=== PATIENT | female | born 1960 | race African-American/Black ===

== ENCOUNTER 2021-11-16 00:52 | Inpatient (IN) | payer OTHER ==
[~2021-11-16] VITALS: Ht 177.8 cm; Wt 78.8 kg
[2021-11-16] VITALS (46 sets, daily range): BP systolic 45–165; BP diastolic 25–105
--- NOTE | ~2021-11-16 | EMS ---
[address] [address] EMS Patient Care Report Name: MARTINEZ GOMEZ Room #: 243-P ADM IN M.R.#: [id number] Admission: 11/16/21 Attend Phys: Sam Cruz DO Discharge: Date of : 58 Report #: [id number] THIS REPORT FOR: //name// Report Transmitted: 11/16/2021 16:19 EMS Care Summary [place], [place]/[facility] Incident [id number] @ 11/15/2021 23:47 Incident Location [address] [place] [address] Patient MARTINEZ GOMEZ Female, 61 Years 1960 Patient Address [address] [place] [address] Patient History Congestive Heart Failure (CHF),Chronic Obstructive Pulmonary Disease (COPD),Hypertension (HTN), Patient Allergies Penicillin allergy,Sulfa, Patient Medications None Reported, Chief Complaint UNRESPONSIVE Disposition Transported Lights/[facility] Dispatch Reason Breathing Problem Transported To [facility] Narrative RESPONDED TO BREATHING PROBLEMS AT APARTMENT. UPON ARRIVAL PT FOUND LEANING AGAINST WALL IN HALLWAY UNRESPONSIVE. PT HAS FROTHY FLUIDS COMING FROM MOUTH. [facility] [address] [place] [address] EMS Patient Care Report Name: MARTINEZ GOMEZ Room #: 243-P ADM IN M.Yasir.#: [id number] Admission: 11/16/21 Attend Phys: Sam Cruz, DO Discharge: Date of : 58 Report #: [id number] PT WAS PUT ON MONITOR AND INTIALLY PREPPED FOR PACING BUT UPON CHECKING PULSE CPR WAS INITIATED. IGEL AND BVM WITH O2 AT 15LPM INITIATED BY EMT. IV ACCESS ATTEMPTED BUT IO WAS ESTABLISHED AND EPI GIVEN. PT GIVEN MULTIPLE EPI AND ROSC OCCURRED FOR APPROXIMATELY 30 SECONDS.12 LEAD WAS PREPPED PT WAS DEFIBRILLATED INSTEAD. AMIODARONE 300MG GIVEN AND CPR CONTINUED. SHORTLY AFTER PT WAS PEA AND GIVEN EPI BUT THEN ROSC OCCURRED AGAIN, 12 LEAD OBTAINED AND PT WAS PREPPED FOR TRANSPORT. PULSE WAS LOST EN ROUTE TO AMBULANCE AND CPR STARTED AGAIN. PT GIVEN 1 EPI EN ROUTE. UPON ARRIVAL TO HOSPITAL PT AGAIN HAD PULSE RETURN. PT WAS GENTLY MOVED TO HOSPITAL BED AND REPORT GIVEN TO NURSE. PT WAS CODED ONCE AGAIN AND HOSPITAL STAFF ACHIEVED ROSC AFTER SEVERAL MINUTES. Initial Vitals @00:08P: 154, @00:11P: 48, @00:04P: 145,SpO2: 78, @00:10P: 108, @00:19P: 159, @00:25P: 109,R: 10,EtCO2: 68, @00:14P: 159,R: 6,EtCO2: 14, @00:28P: 163,EtCO2: 39, @00:20P: 163, @00:27P: 135,R: 14,EtCO2: 87, @00:11P: 21,Glucose: 131, @00:07P: 20,SpO2: 55, @00:26P: 141,R: 13,BP: 105/73,EtCO2: 86, @00:20P: 165,R: 6,EtCO2: 47, @00:01P: 40,SpO2: 29, @00:05P: 101,EtCO2: 0,SpO2: 83, @00:12P: 201,R: 8,EtCO2: 29, @00:06P: 178,EtCO2: 0,SpO2: 60, @00:17P: 24,R: 4,EtCO2: 0, @00:28P: 128, @00:27P: 171,EtCO2: 81, @00:21P: 165,R: 10,EtCO2: 40, @00:01P: 45,SpO2: 47, @00:25P: 111,R: 6,EtCO2: 89, @00:24P: 167,R: 11,EtCO2: 61, @00:47P: 36,R: 9,EtCO2: 44, @00:51P: 75,R: 12,EtCO2: 59, @00:48P: 66,R: 9,EtCO2: 38, @00:42P: 44, @00:35P: 96,R: 12,EtCO2: 38,SpO2: 100, @00:36P: 87,R: 6,EtCO2: 56, @00:43P: 37,R: 12,EtCO2: 44, @00:35P: 94,R: 9,EtCO2: 59, @00:34P: 90,R: 10,EtCO2: 57,SpO2: 95, [address] [place] [address] EMS Patient Care Report Name: MARTINEZ GOMEZ Room #: 243-P ADM IN M.R.#: [id number] Admission: 11/16/21 Attend Phys: Sam Cruz DO Discharge: Date of : 58 Report #: [id number] @00:31P: 95,R: 6, @00:44P: 32,R: 7,EtCO2: 0, @00:32P: 76,R: 11,EtCO2: 50,SpO2: 97, @00:45P: 36,EtCO2: 77, @00:31P: 73,R: 6,CO: 14,EtCO2: 38,SpO2: 99, @00:50P: 77,R: 12,EtCO2: 51, @00:39P: 95,R: 9,EtCO2: 47,SpO2: 96, @00:29P: 170,R: 12,EtCO2: 62,SpO2: 99, @00:46P: 28,R: 13,EtCO2: 35, @23:59P: 113,GCS: 3,SpO2: 65, Assessments @00:01MENTAL:Unresponsive,SKIN:Pale,HEENT:Eyes: Left: Dilated,Eyes: Right: Dilated,LUNG SOUNDS:General: No Abnormalities,ABDOMEN:General: No Abnormalities,PELVIS//GI:No Abnormalities,EXTREMITIES:Left Arm: No Abnormalities,Right Arm: No Abnormalities,Left Leg: No Abnormalities,Right Leg: No Abnormalities,PULSE:Carotid: Absent,Radial: Absent,NEURO:Other,@00:12MENTAL:Unresponsive,SKIN:Pale,HEENT:Eyes: Left: Dilated,Eyes: Right: Dilated,Neck/Airway: No Abnormalities,LUNG SOUNDS:General: No Abnormalities,Left Upper: No Abnormalities,Right Upper: No Abnormalities,Left Lower: No Abnormalities,Right Lower: No Abnormalities,ABDOMEN:General: No Abnormalities,Left Upper: No Abnormalities,Right Upper: No Abnormalities,Left Lower: No Abnormalities,Right Lower: No Abnormalities,PELVIS//GI:No Abnormalities,EXTREMITIES:Left Arm: No Abnormalities,Right Arm: No Abnormalities,Left Leg: No Abnormalities,Right Leg: No Abnormalities,PULSE:Carotid: Absent,Radial: Absent,NEURO:Other, Impression Cardiac arrest Procedures @00:01 Response: Unchanged @00:20 Epinephrine 1:10 - 1 Milligrams (mg) - Intraosseous (IO) Response: Unchanged @00:10 Epinephrine 1:10 - 1 Milligrams (mg) - Intraosseous (IO) Response: Unchanged @00:01 Response: Unchanged @00:27 Response: UnchangedSucceeded @00:32 Epinephrine 1:10 - 1 Milligrams (mg) - Intraosseous (IO) Response: Unchanged @00:28 Epinephrine 1:10 - 1 Milligrams (mg) - Intraosseous (IO) Response: Unchanged @23:58 Response: UnchangedSucceeded @00:44 Epinephrine 1:10 - 1 Milligrams (mg) - Intraosseous (IO) Response: Unchanged @00:36 12-Lead ECG Response: UnchangedSucceeded [address] [address] EMS Patient Care Report Name: MARTINEZ GOMEZ Room #: 243-P [facility] IN ..#: [id number] Admission: 11/16/21 Attend Phys: Sam Cruz DO Discharge: Date of : 58 Report #: [id number] @00:01 3-Lead ECG Response: UnchangedSucceeded @00:29 Amiodarone - 300 Milligrams (mg) - Intraosseous (IO) Response: Unchanged @00:05 Oxygen FlowRate: 15 Device: Bag Valve Mask (BVM) Response: UnchangedSucceeded @00:05 iGEL Response: UnchangedSucceeded @00:03 IV Therapy - 0cc (22 ga) Site: Antecubital-Left Response: UnchangedFailed @23:58 ALS Assessment Response: UnchangedSucceeded @00:13 Suction Response: UnchangedSucceeded @00:07 Intraosseous - Normal Saline (.9% NaCl) 500cc (EZ-IO (Blue 25mm)) Site: PP-Exvmp-Dhwl Proximal Response: UnchangedSucceeded @00:16 Orotracheal Intubation Complications: Unable To Visualize, Response: UnchangedSucceeded @00:12 Response: UnchangedSucceeded Timeline 23:46,Call Received 23:46,Dispatch Notified 23:47,Dispatched 23:48,En Route 23:55,On Scene 23:58,At Patient 23:58,ALS Assessment,Response: UnchangedSucceeded, 23:58,Response: UnchangedSucceeded, 23:59,BP: / M,PULSE: 113,RR: R,SPO2: 65 Ox,ETCO2: ,BG: ,PAIN: ,GCS: 3, 00:01,BP: / M,PULSE: 40,RR: R,SPO2: 29 Ox,ETCO2: ,BG: ,PAIN: ,GCS: , 00:01,3-Lead ECG,Response: UnchangedSucceeded, 00:01,Response: Unchanged 00:01,BP: / M,PULSE: 45,RR: R,SPO2: 47 Ox,ETCO2: ,BG: ,PAIN: ,GCS: , 00:01,Response: Unchanged 00:03,IV Therapy - 0cc 22 ga Site: Antecubital-Left,Response: UnchangedFailed, 00:04,BP: / M,PULSE: 145,RR: R,SPO2: 78 Ox,ETCO2: ,BG: ,PAIN: ,GCS: , 00:05,BP: / M,PULSE: 101,RR: R,SPO2: 83 Ox,ETCO2: 0 ,BG: ,PAIN: ,GCS: , 00:05,iGEL Response: UnchangedSucceeded, 00:05,Oxygen FlowRate: 15 Device: Bag Valve Mask (BVM) Response: UnchangedSucceeded, 00:06,BP: / M,PULSE: 178,RR: R,SPO2: 60 Ox,ETCO2: 0 ,BG: ,PAIN: ,GCS: , 00:07,Intraosseous - Normal Saline (.9% NaCl) 500cc EZ-IO (Blue 25mm) Site: XS-Iaawv-Fdds Proximal,Response: UnchangedSucceeded, 00:07,BP: / M,PULSE: 20,RR: R,SPO2: 55 Ox,ETCO2: ,BG: ,PAIN: ,GCS: , 00:08,BP: / M,PULSE: 154,RR: R,SPO2: Ox,ETCO2: ,BG: ,PAIN: ,GCS: , 00:10,Epinephrine 1:10 - 1 Milligrams (mg) - Intraosseous (IO),Response: Unchanged 00:10,BP: / M,PULSE: 108,RR: R,SPO2: Ox,ETCO2: ,BG: ,PAIN: ,GCS: , 00:11,BP: / M,PULSE: 48,RR: R,SPO2: Ox,ETCO2: ,BG: ,PAIN: ,GCS: , [facility] [address] [place] [address] EMS Patient Care Report Name: MARTINEZ GOMEZ Room #: 243-P ADM IN M.R.#: [id number] Admission: 11/16/21 Attend Phys: Sam Cruz DO Discharge: Date of : 58 Report #: [id number] 00:11,BP: / M,PULSE: 21,RR: R,SPO2: Ox,ETCO2: ,B,PAIN: ,GCS: , 00:12,Response: UnchangedSucceeded, 00:12,BP: / M,PULSE: 201,RR: 8 R,SPO2: Ox,ETCO2: 29 ,BG: ,PAIN: ,GCS: , 00:13,Suction Response: UnchangedSucceeded, 00:14,BP: / M,PULSE: 159,RR: 6 R,SPO2: Ox,ETCO2: 14 ,BG: ,PAIN: ,GCS: , 00:16,Orotracheal Intubation Complications: Unable To Visualize,,Response: UnchangedSucceeded, 00:17,BP: / M,PULSE: 24,RR: 4 R,SPO2: Ox,ETCO2: 0 ,BG: ,PAIN: ,GCS: , 00:19,BP: / M,PULSE: 159,RR: R,SPO2: Ox,ETCO2: ,BG: ,PAIN: ,GCS: , 00:20,BP: / M,PULSE: 165,RR: 6 R,SPO2: Ox,ETCO2: 47 ,BG: ,PAIN: ,GCS: , 00:20,Epinephrine 1:10 - 1 Milligrams (mg) - Intraosseous (IO),Response: Unchanged 00:20,BP: / M,PULSE: 163,RR: R,SPO2: Ox,ETCO2: ,BG: ,PAIN: ,GCS: , 00:21,BP: / M,PULSE: 165,RR: 10 R,SPO2: Ox,ETCO2: 40 ,BG: ,PAIN: ,GCS: , 00:24,BP: / M,PULSE: 167,RR: 11 R,SPO2: Ox,ETCO2: 61 ,BG: ,PAIN: ,GCS: , 00:25,BP: / M,PULSE: 109,RR: 10 R,SPO2: Ox,ETCO2: 68 ,BG: ,PAIN: ,GCS: , 00:25,BP: / M,PULSE: 111,RR: 6 R,SPO2: Ox,ETCO2: 89 ,BG: ,PAIN: ,GCS: , 00:26,BP: 105/73 M,PULSE: 141,RR: 13 R,SPO2: Ox,ETCO2: 86 ,BG: ,PAIN: ,GCS: , 00:27,Response: UnchangedSucceeded, 00:27,BP: / M,PULSE: 135,RR: 14 R,SPO2: Ox,ETCO2: 87 ,BG: ,PAIN: ,GCS: , 00:27,BP: / M,PULSE: 171,RR: R,SPO2: Ox,ETCO2: 81 ,BG: ,PAIN: ,GCS: , 00:28,BP: / M,PULSE: 163,RR: R,SPO2: Ox,ETCO2: 39 ,BG: ,PAIN: ,GCS: , 00:28,Epinephrine 1:10 - 1 Milligrams (mg) - Intraosseous (IO),Response: Unchanged 00:28,BP: / M,PULSE: 128,RR: R,SPO2: Ox,ETCO2: ,BG: ,PAIN: ,GCS: , 00:29,Amiodarone - 300 Milligrams (mg) - Intraosseous (IO),Response: Unchanged 00:29,BP: / M,PULSE: 170,RR: 12 R,SPO2: 99 Ox,ETCO2: 62 ,BG: ,PAIN: ,GCS: , 00:31,BP: / M,PULSE: 73,RR: 6 R,SPO2: 99 Ox,ETCO2: 38 ,BG: ,PAIN: ,GCS: , 00:31,BP: / M,PULSE: 95,RR: 6 R,SPO2: Ox,ETCO2: ,BG: ,PAIN: ,GCS: , 00:32,Epinephrine 1:10 - 1 Milligrams (mg) - Intraosseous (IO),Response: Unchanged 00:32,BP: / M,PULSE: 76,RR: 11 R,SPO2: 97 Ox,ETCO2: 50 ,BG: ,PAIN: ,GCS: , 00:34,BP: / M,PULSE: 90,RR: 10 R,SPO2: 95 Ox,ETCO2: 57 ,BG: ,PAIN: ,GCS: , 00:35,BP: / M,PULSE: 96,RR: 12 R,SPO2: 100 Ox,ETCO2: 38 ,BG: ,PAIN: ,GCS: , 00:35,BP: / M,PULSE: 94,RR: 9 R,SPO2: Ox,ETCO2: 59 ,BG: ,PAIN: ,GCS: , 00:36,12-Lead ECG,Response: UnchangedSucceeded, 00:36,BP: / M,PULSE: 87,RR: 6 R,SPO2: Ox,ETCO2: 56 ,BG: ,PAIN: ,GCS: , 00:39,BP: / M,PULSE: 95,RR: 9 R,SPO2: 96 Ox,ETCO2: 47 ,BG: ,PAIN: ,GCS: , 00:42,BP: / M,PULSE: 44,RR: R,SPO2: Ox,ETCO2: ,BG: ,PAIN: ,GCS: , 00:43,BP: / M,PULSE: 37,RR: 12 R,SPO2: Ox,ETCO2: 44 ,BG: ,PAIN: ,GCS: , 00:44,Epinephrine 1:10 - 1 Milligrams (mg) - Intraosseous (IO),Response: Unchanged 00:44,BP: / M,PULSE: 32,RR: 7 R,SPO2: Ox,ETCO2: 0 ,BG: ,PAIN: ,GCS: , 00:45,BP: / M,PULSE: 36,RR: R,SPO2: Ox,ETCO2: 77 ,BG: ,PAIN: ,GCS: , 00:45,Depart Scene 00:46,BP: / M,PULSE: 28,RR: 13 R,SPO2: Ox,ETCO2: 35 ,BG: ,PAIN: ,GCS: , [address] [place] [address] EMS Patient Care Report Name: MARTINEZ GOMEZ Room #: 243-P ADM IN M.R.#: [id number] Admission: 11/16/21 Attend Phys: Sam Cruz DO Discharge: Date of : 58 Report #: [id number] 00:47,BP: / M,PULSE: 36,RR: 9 R,SPO2: Ox,ETCO2: 44 ,BG: ,PAIN: ,GCS: , 00:48,BP: / M,PULSE: 66,RR: 9 R,SPO2: Ox,ETCO2: 38 ,BG: ,PAIN: ,GCS: , 00:49,At Destination 00:50,BP: / M,PULSE: 77,RR: 12 R,SPO2: Ox,ETCO2: 51 ,BG: ,PAIN: ,GCS: , 00:51,BP: / M,PULSE: 75,RR: 12 R,SPO2: Ox,ETCO2: 59 ,BG: ,PAIN: ,GCS: , 01:10,Call Closed Disclaimer v1.1 Copyright 2021 [employer] This EMS Care Summary contains data elements from the applicable legal record (which may be displayed differently). It is designed to provide pertinent information for the following purposes: continuity of care, clinical quality, and state data reporting. The complete legal record is available to ED staff and administrators of the receiving hospital in [employer] Patient Tracker. All data is provided "as is."
--- NOTE | ~2021-11-16 | EMS ---
[facility] [address] [place] [address] EMS Patient Care Report Name: MARTINEZ GOMEZ Room #: MAULIK LEILA Willis#: [id number] Admission: 11/16/21 Attend Phys: Discharge: Date of : 58 Report #: [id number] THIS REPORT FOR: //name// Report Transmitted: 11/16/2021 01:54 EMS Care Summary [place], [place]/[facility] Incident [id number] @ 11/15/2021 23:47 Incident Location [address] [place] [address] Patient MARTINEZ GOMEZ Female, 61 Years 1960 Patient Address [address] [address] Patient History Congestive Heart Failure (CHF),Chronic Obstructive Pulmonary Disease (COPD),Hypertension (HTN), Patient Allergies Penicillin allergy,Sulfa, Patient Medications None Reported, Chief Complaint UNRESPONSIVE Disposition Transported [place] Dispatch Reason Breathing Problem Transported [facility] Narrative RESPONDED TO BREATHING PROBLEMS AT APARTMENT. UPON ARRIVAL PT FOUND LEANING AGAINST WALL IN HALLWAY UNRESPONSIVE. PT HAS FROTHY FLUIDS COMING FROM MOUTH. [facility] [address] [place] [address] EMS Patient Care Report Name: MARTINEZ GOMEZ Room #: MAULIK Willis#: [id number] Admission: 11/16/21 Attend Phys: Discharge: Date of : 58 Report #: [id number] PT WAS PUT ON MONITOR AND INTIALLY PREPPED FOR PACING BUT UPON CHECKING PULSE CPR WAS INITIATED. IGEL AND BVM WITH O2 AT 15LPM INITIATED BY EMT. IV ACCESS ATTEMPTED BUT IO WAS ESTABLISHED AND EPI GIVEN. PT GIVEN MULTIPLE EPI AND ROSC OCCURRED FOR APPROXIMATELY 30 SECONDS.12 LEAD WAS PREPPED PT WAS DEFIBRILLATED INSTEAD. AMIODARONE 300MG GIVEN AND CPR CONTINUED. SHORTLY AFTER PT WAS PEA AND GIVEN EPI BUT THEN ROSC OCCURRED AGAIN, 12 LEAD OBTAINED AND PT WAS PREPPED FOR TRANSPORT. PULSE WAS LOST EN ROUTE TO AMBULANCE AND CPR STARTED AGAIN. PT GIVEN 1 EPI EN ROUTE. UPON ARRIVAL TO HOSPITAL PT AGAIN HAD PULSE RETURN. PT WAS GENTLY MOVED TO HOSPITAL BED AND REPORT GIVEN TO NURSE. PT WAS CODED ONCE AGAIN AND HOSPITAL STAFF ACHIEVED ROSC AFTER SEVERAL MINUTES. Initial Vitals @00:08P: 154, @00:11P: 48, @00:04P: 145,SpO2: 78, @00:10P: 108, @00:19P: 159, @00:25P: 109,R: 10,EtCO2: 68, @00:14P: 159,R: 6,EtCO2: 14, @00:28P: 163,EtCO2: 39, @00:20P: 163, @00:27P: 135,R: 14,EtCO2: 87, @00:11P: 21,Glucose: 131, @00:07P: 20,SpO2: 55, @00:26P: 141,R: 13,BP: 105/73,EtCO2: 86, @00:20P: 165,R: 6,EtCO2: 47, @00:01P: 40,SpO2: 29, @00:05P: 101,EtCO2: 0,SpO2: 83, @00:12P: 201,R: 8,EtCO2: 29, @00:06P: 178,EtCO2: 0,SpO2: 60, @00:17P: 24,R: 4,EtCO2: 0, @00:28P: 128, @00:27P: 171,EtCO2: 81, @00:21P: 165,R: 10,EtCO2: 40, @00:01P: 45,SpO2: 47, @00:25P: 111,R: 6,EtCO2: 89, @00:24P: 167,R: 11,EtCO2: 61, @00:47P: 36,R: 9,EtCO2: 44, @00:51P: 75,R: 12,EtCO2: 59, @00:48P: 66,R: 9,EtCO2: 38, @00:42P: 44, @00:35P: 96,R: 12,EtCO2: 38,SpO2: 100, @00:36P: 87,R: 6,EtCO2: 56, @00:43P: 37,R: 12,EtCO2: 44, @00:35P: 94,R: 9,EtCO2: 59, @00:34P: 90,R: 10,EtCO2: 57,SpO2: 95, [address] [place] [address] EMS Patient Care Report Name: MARTINEZ GOMEZ Room #: MAULIK Willis#: [id number] Admission: 11/16/21 Attend Phys: Discharge: Date of : 58 Report #: [id number] @00:31P: 95,R: 6, @00:44P: 32,R: 7,EtCO2: 0, @00:32P: 76,R: 11,EtCO2: 50,SpO2: 97, @00:45P: 36,EtCO2: 77, @00:31P: 73,R: 6,CO: 14,EtCO2: 38,SpO2: 99, @00:50P: 77,R: 12,EtCO2: 51, @00:39P: 95,R: 9,EtCO2: 47,SpO2: 96, @00:29P: 170,R: 12,EtCO2: 62,SpO2: 99, @00:46P: 28,R: 13,EtCO2: 35, @23:59P: 113,GCS: 3,SpO2: 65, Assessments @00:01MENTAL:Unresponsive,SKIN:Pale,HEENT:Eyes: Right: Dilated,Eyes: Left: Dilated,LUNG SOUNDS:General: No Abnormalities,ABDOMEN:General: No Abnormalities,PELVIS//GI:No Abnormalities,EXTREMITIES:Left Arm: No Abnormalities,Right Arm: No Abnormalities,Left Leg: No Abnormalities,Right Leg: No Abnormalities,PULSE:Radial: Absent,Carotid: Absent,NEURO:Other,@00:12MENTAL:Unresponsive,SKIN:Pale,HEENT:Eyes: Right: Dilated,Eyes: Left: Dilated,Neck/Airway: No Abnormalities,LUNG SOUNDS:General: No Abnormalities,Left Upper: No Abnormalities,Right Upper: No Abnormalities,Left Lower: No Abnormalities,Right Lower: No Abnormalities,ABDOMEN:General: No Abnormalities,Left Upper: No Abnormalities,Right Upper: No Abnormalities,Left Lower: No Abnormalities,Right Lower: No Abnormalities,PELVIS//GI:No Abnormalities,EXTREMITIES:Left Arm: No Abnormalities,Right Arm: No Abnormalities,Left Leg: No Abnormalities,Right Leg: No Abnormalities,PULSE:Radial: Absent,Carotid: Absent,NEURO:Other, Impression Cardiac arrest Procedures @00:01 Response: Unchanged @00:20 Epinephrine 1:10 - 1 Milligrams (mg) - Intraosseous (IO) Response: Unchanged @00:10 Epinephrine 1:10 - 1 Milligrams (mg) - Intraosseous (IO) Response: Unchanged @00:01 Response: Unchanged @00:27 Response: UnchangedSucceeded @00:32 Epinephrine 1:10 - 1 Milligrams (mg) - Intraosseous (IO) Response: Unchanged @00:28 Epinephrine 1:10 - 1 Milligrams (mg) - Intraosseous (IO) Response: Unchanged @23:58 Response: UnchangedSucceeded @00:44 Epinephrine 1:10 - 1 Milligrams (mg) - Intraosseous (IO) Response: Unchanged @00:36 12-Lead ECG Response: UnchangedSucceeded [address] [address] EMS Patient Care Report Name: MARTINEZ GOMEZ Room #: [facility] LEILA Willis#: [id number] Admission: 11/16/21 Attend Phys: Discharge: Date of : 58 Report #: [id number] @00:01 3-Lead ECG Response: UnchangedSucceeded @00:29 Amiodarone - 300 Milligrams (mg) - Intraosseous (IO) Response: Unchanged @00:05 Oxygen FlowRate: 15 Device: Bag Valve Mask (BVM) Response: UnchangedSucceeded @00:05 iGEL Response: UnchangedSucceeded @00:03 IV Therapy - 0cc (22 ga) Site: Antecubital-Left Response: UnchangedFailed @23:58 ALS Assessment Response: UnchangedSucceeded @00:13 Suction Response: UnchangedSucceeded @00:07 Intraosseous - Normal Saline (.9% NaCl) 500cc (EZ-IO (Blue 25mm)) Site: CX-Whydl-Xvxi Proximal Response: UnchangedSucceeded @00:16 Orotracheal Intubation Complications: Unable To Visualize, Response: UnchangedSucceeded @00:12 Response: UnchangedSucceeded Timeline 23:46,Call Received 23:46,Dispatch Notified 23:47,Dispatched 23:48,En Route 23:55,On Scene 23:58,At Patient 23:58,ALS Assessment,Response: UnchangedSucceeded, 23:58,Response: UnchangedSucceeded, 23:59,BP: / M,PULSE: 113,RR: R,SPO2: 65 Ox,ETCO2: ,BG: ,PAIN: ,GCS: 3, 00:01,BP: / M,PULSE: 40,RR: R,SPO2: 29 Ox,ETCO2: ,BG: ,PAIN: ,GCS: , 00:01,3-Lead ECG,Response: UnchangedSucceeded, 00:01,Response: Unchanged 00:01,BP: / M,PULSE: 45,RR: R,SPO2: 47 Ox,ETCO2: ,BG: ,PAIN: ,GCS: , 00:01,Response: Unchanged 00:03,IV Therapy - 0cc 22 ga Site: Antecubital-Left,Response: UnchangedFailed, 00:04,BP: / M,PULSE: 145,RR: R,SPO2: 78 Ox,ETCO2: ,BG: ,PAIN: ,GCS: , 00:05,BP: / M,PULSE: 101,RR: R,SPO2: 83 Ox,ETCO2: 0 ,BG: ,PAIN: ,GCS: , 00:05,iGEL Response: UnchangedSucceeded, 00:05,Oxygen FlowRate: 15 Device: Bag Valve Mask (BVM) Response: UnchangedSucceeded, 00:06,BP: / M,PULSE: 178,RR: R,SPO2: 60 Ox,ETCO2: 0 ,BG: ,PAIN: ,GCS: , 00:07,Intraosseous - Normal Saline (.9% NaCl) 500cc EZ-IO (Blue 25mm) Site: UQ-Grgkn-Uzsg Proximal,Response: UnchangedSucceeded, 00:07,BP: / M,PULSE: 20,RR: R,SPO2: 55 Ox,ETCO2: ,BG: ,PAIN: ,GCS: , 00:08,BP: / M,PULSE: 154,RR: R,SPO2: Ox,ETCO2: ,BG: ,PAIN: ,GCS: , 00:10,Epinephrine 1:10 - 1 Milligrams (mg) - Intraosseous (IO),Response: Unchanged 00:10,BP: / M,PULSE: 108,RR: R,SPO2: Ox,ETCO2: ,BG: ,PAIN: ,GCS: , 00:11,BP: / M,PULSE: 48,RR: R,SPO2: Ox,ETCO2: ,BG: ,PAIN: ,GCS: , [address] [address] EMS Patient Care Report Name: RADHAJAYLEENMARTINEZ Room #: MAULIK Willis#: [id number] Admission: 11/16/21 Attend Phys: Discharge: Date of : 58 Report #: [id number] 00:11,BP: / M,PULSE: 21,RR: R,SPO2: Ox,ETCO2: ,B,PAIN: ,GCS: , 00:12,Response: UnchangedSucceeded, 00:12,BP: / M,PULSE: 201,RR: 8 R,SPO2: Ox,ETCO2: 29 ,BG: ,PAIN: ,GCS: , 00:13,Suction Response: UnchangedSucceeded, 00:14,BP: / M,PULSE: 159,RR: 6 R,SPO2: Ox,ETCO2: 14 ,BG: ,PAIN: ,GCS: , 00:16,Orotracheal Intubation Complications: Unable To Visualize,,Response: UnchangedSucceeded, 00:17,BP: / M,PULSE: 24,RR: 4 R,SPO2: Ox,ETCO2: 0 ,BG: ,PAIN: ,GCS: , 00:19,BP: / M,PULSE: 159,RR: R,SPO2: Ox,ETCO2: ,BG: ,PAIN: ,GCS: , 00:20,BP: / M,PULSE: 165,RR: 6 R,SPO2: Ox,ETCO2: 47 ,BG: ,PAIN: ,GCS: , 00:20,Epinephrine 1:10 - 1 Milligrams (mg) - Intraosseous (IO),Response: Unchanged 00:20,BP: / M,PULSE: 163,RR: R,SPO2: Ox,ETCO2: ,BG: ,PAIN: ,GCS: , 00:21,BP: / M,PULSE: 165,RR: 10 R,SPO2: Ox,ETCO2: 40 ,BG: ,PAIN: ,GCS: , 00:24,BP: / M,PULSE: 167,RR: 11 R,SPO2: Ox,ETCO2: 61 ,BG: ,PAIN: ,GCS: , 00:25,BP: / M,PULSE: 109,RR: 10 R,SPO2: Ox,ETCO2: 68 ,BG: ,PAIN: ,GCS: , 00:25,BP: / M,PULSE: 111,RR: 6 R,SPO2: Ox,ETCO2: 89 ,BG: ,PAIN: ,GCS: , 00:26,BP: 105/73 M,PULSE: 141,RR: 13 R,SPO2: Ox,ETCO2: 86 ,BG: ,PAIN: ,GCS: , 00:27,Response: UnchangedSucceeded, 00:27,BP: / M,PULSE: 135,RR: 14 R,SPO2: Ox,ETCO2: 87 ,BG: ,PAIN: ,GCS: , 00:27,BP: / M,PULSE: 171,RR: R,SPO2: Ox,ETCO2: 81 ,BG: ,PAIN: ,GCS: , 00:28,BP: / M,PULSE: 163,RR: R,SPO2: Ox,ETCO2: 39 ,BG: ,PAIN: ,GCS: , 00:28,Epinephrine 1:10 - 1 Milligrams (mg) - Intraosseous (IO),Response: Unchanged 00:28,BP: / M,PULSE: 128,RR: R,SPO2: Ox,ETCO2: ,BG: ,PAIN: ,GCS: , 00:29,Amiodarone - 300 Milligrams (mg) - Intraosseous (IO),Response: Unchanged 00:29,BP: / M,PULSE: 170,RR: 12 R,SPO2: 99 Ox,ETCO2: 62 ,BG: ,PAIN: ,GCS: , 00:31,BP: / M,PULSE: 73,RR: 6 R,SPO2: 99 Ox,ETCO2: 38 ,BG: ,PAIN: ,GCS: , 00:31,BP: / M,PULSE: 95,RR: 6 R,SPO2: Ox,ETCO2: ,BG: ,PAIN: ,GCS: , 00:32,Epinephrine 1:10 - 1 Milligrams (mg) - Intraosseous (IO),Response: Unchanged 00:32,BP: / M,PULSE: 76,RR: 11 R,SPO2: 97 Ox,ETCO2: 50 ,BG: ,PAIN: ,GCS: , 00:34,BP: / M,PULSE: 90,RR: 10 R,SPO2: 95 Ox,ETCO2: 57 ,BG: ,PAIN: ,GCS: , 00:35,BP: / M,PULSE: 96,RR: 12 R,SPO2: 100 Ox,ETCO2: 38 ,BG: ,PAIN: ,GCS: , 00:35,BP: / M,PULSE: 94,RR: 9 R,SPO2: Ox,ETCO2: 59 ,BG: ,PAIN: ,GCS: , 00:36,12-Lead ECG,Response: UnchangedSucceeded, 00:36,BP: / M,PULSE: 87,RR: 6 R,SPO2: Ox,ETCO2: 56 ,BG: ,PAIN: ,GCS: , 00:39,BP: / M,PULSE: 95,RR: 9 R,SPO2: 96 Ox,ETCO2: 47 ,BG: ,PAIN: ,GCS: , 00:42,BP: / M,PULSE: 44,RR: R,SPO2: Ox,ETCO2: ,BG: ,PAIN: ,GCS: , 00:43,BP: / M,PULSE: 37,RR: 12 R,SPO2: Ox,ETCO2: 44 ,BG: ,PAIN: ,GCS: , 00:44,Epinephrine 1:10 - 1 Milligrams (mg) - Intraosseous (IO),Response: Unchanged 00:44,BP: / M,PULSE: 32,RR: 7 R,SPO2: Ox,ETCO2: 0 ,BG: ,PAIN: ,GCS: , 00:45,BP: / M,PULSE: 36,RR: R,SPO2: Ox,ETCO2: 77 ,BG: ,PAIN: ,GCS: , 00:45,Depart Scene 00:46,BP: / M,PULSE: 28,RR: 13 R,SPO2: Ox,ETCO2: 35 ,BG: ,PAIN: ,GCS: , [address] [address] EMS Patient Care Report Name: MARTINEZ GOMEZ Room #: MAULIK Willis#: [id number] Admission: 11/16/21 Attend Phys: Discharge: Date of : 58 Report #: [id number] 00:47,BP: / M,PULSE: 36,RR: 9 R,SPO2: Ox,ETCO2: 44 ,BG: ,PAIN: ,GCS: , 00:48,BP: / M,PULSE: 66,RR: 9 R,SPO2: Ox,ETCO2: 38 ,BG: ,PAIN: ,GCS: , 00:49,At Destination 00:50,BP: / M,PULSE: 77,RR: 12 R,SPO2: Ox,ETCO2: 51 ,BG: ,PAIN: ,GCS: , 00:51,BP: / M,PULSE: 75,RR: 12 R,SPO2: Ox,ETCO2: 59 ,BG: ,PAIN: ,GCS: , 01:10,Call Closed Disclaimer v1.1 Copyright 2021 [employer] This EMS Care Summary contains data elements from the applicable legal record (which may be displayed differently). It is designed to provide pertinent information for the following purposes: continuity of care, clinical quality, and state data reporting. The complete legal record is available to ED staff and administrators of the receiving hospital in ES's Patient Tracker. All data is provided "as is."
--- NOTE | ~2021-11-16 | HC ---
[facility] [place] [address] CONSULTATION Name: MARTINEZ GOMEZ Room #: 243-P ADM IN M.R.#: [id number] Admission: 11/16/21 Attend Phys: Sam Cruz DO Discharge: Date of : 58 Report #: [id number] THIS REPORT FOR: cc: Skylar Bradshaw MD, Karla L. MD Khosla, Parveen K. MD ~ DATE OF SERVICE: 11/16/2021 HISTORY OF PRESENT ILLNESS: This is a 61-year-old female patient who was evaluated by me for hypoxic encephalopathy. The patient was discussed with nurse looking after this patient and I talked to Dr. Mueller from Pulmonology/Critical Care. There is no family member available. In fact, the notes indicated they have tried to reach the family, but they have not been able to do that. This patient called EMS because she was short of breath and subsequently she arrested. It looks like there is a prolonged CPR in this patient and presently she is completely unresponsive. REVIEW OF SYSTEMS: Only from the records. A 14-point review of system was attempted. It looks like the patient has a history of congestive heart failure, COPD, hypertension. Because of multiple problems, she was not started on hypothermia protocol. She is on pressure support. She had a CTA of the chest on admission and she also had a CT scan of the head and I reviewed the films and I will describe it later on. She has a pleural effusion, consolidation indicating pneumonia and mediastinal lymph node enlargement. That is all the 14-point review of systems I can get in this patient from the record and I will make an attempt to reach the family. PAST MEDICAL HISTORY: From the records and it looks like congestive heart failure and COPD and chest x-ray showing consolidation. FAMILY AND SOCIAL HISTORY: Unavailable, the record indicates it is not known whether she uses alcohol or tobacco. PHYSICAL EXAMINATION: The patient's examination is pretty limited. She is basically unresponsive. She does not respond to the painful stimuli or verbal stimuli. Pupils are level more than midpoint, but they are nonreactive. There is no doll's eye movement. There is no reflexes. There is no meningeal sign. I cannot not look at the patient's fundus. She is morbidly obese. I cannot tell what her hearing and vision says because she is completely unresponsive. She does not appear to have marked edema. She is intubated and she is on vent and the nurses tell me that she is not assisting the vent. Blood pressure is 145/93, respirations 22, pulse is 101. LABORATORY DATA: White count is 16.8. I reviewed the CT scan films in this [facility] [address] [facility] [place] [address] CONSULTATION Name: MARTINEZ GOMEZ Room #: 243-P ADM IN M.R.#: [id number] Admission: 11/16/21 Attend Phys: Sam Cruz DO Discharge: Date of : 58 Report #: [id number] patient. This patient does have diffuse edema. There are few sulci still seen, but most of the sulci obliterated. Last blood pressure was 140/93 and saturation is fluctuated, but the last one was 91. IMPRESSION: 1. Severe hypoxic encephalopathy. 2. This patient may meet the criteria for brain . RECOMMENDATIONS: We will start the brain evaluation, but I will give 24 hours from the cardiac arrest to start that because if it is started too early, sometime, we get some blood flow or EEG activity and those all things need to be repeated. Two exam may have to be done in this patient. I will suggest avoid any sedation. We will set up an EEG tomorrow. We will set up a brain scan tomorrow and do a clinical evaluation for brain in the morning, which will be 24-hour after the cardiac arrest. I do not know whether we will do the 2 exams or just 1 exam, which suffice, but that will also depend upon ancillary testing. Since we are doing it pretty quickly, then I would like to have support from ancillary tests and get an EEG done tomorrow and also the brain flow scan done tomorrow and I will do the clinical evaluation, then ask the indian trader to do apnea test in this patient. Thank you very much for this referral and if you have any questions, please feel free to contact me. By: [id number] Mando Jenkins MD /nt
[2021-11-16 01:20] LABS: ABSOLUTE NEUTROPHILS 6.6 thou/uL (1.4-8.2); BASOPHILS 0.7 % (0.0-2.0); EOSINOPHILS 0.4 % (0.0-3.0); HEMATOCRIT 37.9 % (37.0-47.0); HEMOGLOBIN 11.7 gm/dL (12.0-15.0); MCH 29.2 pg (26.0-34.0); MCHC 30.9 g/dL (28.0-37.0); MCV 94.7 fL (80.0-100.0); MONOCYTES 3.8 % (1.0-8.0); PLATELET COUNT 159 thou/uL (150-400); POLYS 62.1 % (36.0-66.0); RDW 15.9 % (10.5-14.5); WBC 10.7 thou/uL (4.0-11.0)
[2021-11-16 01:40] LABS: CALCIUM 9.3 mg/dL (8.5-10.1); CREATININE 1.4 mg/dL (0.6-1.0); POTASSIUM 5.1 mmol/L (3.5-5.1)
[2021-11-16 01:49] LABS: HCO3 15.4 mmol/L (22.0-26.0); PCO2 75.9 mmHg (35.0-45.0); sO2 62.3 % (92.0-98.0)
[2021-11-16 01:50] LABS: TOTAL BILIRUBIN 0.5 mg/dL (0.2-1.0); TOTAL PROTEIN 5.1 g/dL (6.4-8.2)
[2021-11-16 01:50] LABS: pH 6.924 (7.360-7.450)
--- NOTE | 2021-11-16 03:26 | NUR ---
CALL IS PLACED TO [facility] AND PATIENTS INFORMATION IS PROVIDED AND THEY WILL ATTEMPT TO LOCATE PATIENTS NEXT OF KIN
--- NOTE | 2021-11-16 03:35 | NUR ---
IN AN ATTEMPT TO REACH NEXT OF KIN, LOCATED PT FACEBOOK PAGE AND REACHED OUT TO ASSUMED FAMILY MEMBER, IN PICTURES ON PTS FACEBOOK PAGE HUGGING PT, TO CALL THE HOSPITAL IN REGARDS TO MARTINEZ. NO RESPONSE AT THIS TIME.
[2021-11-16 07:32] LABS: BE(vivo) -8.1 mmol/L (-2 to +3); HCO3 20.6 mmol/L (22.0-26.0); PCO2 55.1 mmHg (35.0-45.0); PO2 72.7 mmHg (80.0-100.0); sO2 90.7 % (92.0-98.0)
--- NOTE | 2021-11-16 07:41 | NUR ---
ORDERS FOR EVAL AND TREAT HOWEVER Pt IS INTUBATED AND SEDATED. WILL PLACE ON HOLD AND AWAIT NEW ORDERS WHEN Pt ABLE TO PARTICIPATE WITH THERAPY
[2021-11-16 08:07] LABS: CALCIUM 8.8 mg/dL (8.5-10.1); CREATININE 1.6 mg/dL (0.6-1.0); MAGNESIUM 2.1 mg/dL (1.8-2.4)
[2021-11-16 08:08] LABS: POTASSIUM 5.3 mmol/L (3.5-5.1)
--- NOTE | 2021-11-16 08:10 | NUR ---
PT ARRIVED TO ICU ROOM 243 AROUND 0530. PT ON LEVOPHED AND EPI DRIPS. UPON ASSESSMENT PT HAD NO COUGH, GAG, OR CORNEAL REFLEX AND NOT OVERBREATHING VENTILATOR RATE SETTING. PT HAVING BRIGHT RED FROTHY INLINE SECRETIONS AND RUST COLOR OG OUTPUT- PROVIDER AWARE PER ED REPORT. 30CC URINE. PT TAKEN DOWN FOR HEAD CT AROUND 0600. NO RESTRAINTS.
[2021-11-16 08:33] LABS: HEMOGLOBIN 11.4 gm/dL (12.0-15.0); MCV 91.1 fL (80.0-100.0); RDW 15.4 % (10.5-14.5)
--- NOTE | 2021-11-16 08:35 | NUR ---
PATIENT IS INTUBATED AND SEDATED, NOT APPROPRIATE FOR THERAPY AT THIS TIME. WILL PLACE ON HOLD AND WILL NEED NEW ORDERS ONCE PATIENT IS MEDICALLY APPROPRIATE.
[2021-11-16 08:37] LABS: HEMATOCRIT 33.5 % (37.0-47.0); MCH 31.1 pg (26.0-34.0); MCHC 34.1 g/dL (28.0-37.0); RBC 3.68 mil/uL (4.20-5.00); WBC 16.8 thou/uL (4.0-11.0)
[2021-11-16 11:10] LABS: ABSOLUTE NEUTROPHILS 15.8 thou/uL (1.4-8.2); NUCLEATED RBCS 1 /100WBC
[2021-11-16 11:13] LABS: ANISOCYTOSIS 1+; PLATELET COUNT 62 thou/uL (150-400)
--- NOTE | 2021-11-16 11:15 | NUR ---
Case discussed in LOS meeting. Pt is in the ICU on the vent with full support. Prognosis is poor and the attending is awaiting the arrival of the pt's sister from [place] to discuss her outlook and possible transition to comfort care. CM is available for support as needed.
--- NOTE | 2021-11-16 11:23 | NUR ---
REFERRAL RECIEVED FOR REHAB CONSULT. PATIENT IS NOT APPROPRIATE FOR CONSULT AT THIS TIME. WILL FOLLOW UP IF NEEDED.
--- NOTE | 2021-11-16 11:30 | EKG ---
[address] [place] [address] ELECTROCARDIOGRAM REPORT Name: MARTINEZ GOMEZ Room #: 243-P ADM IN M.R.#: [id number] Admission: 11/16/21 Attend Phys: Sam Cruz DO Discharge: Date of : 58 Report #: [id number] [facility] ED Test Date: 2021-11-16 Test Time: 01:47:29 Pat Name: MARTINEZ GOMEZ Department: Room: [facility] Gender: F Licensed Massage Practitioner: unknown : 1960 Requested By: Dyllan Cheatham Order Number: [id number] MD: Destin Hutchinson Measurements Intervals [place] Rate: 87 P: 54 NC: 184 QRS: 96 QRSD: 147 T: 79 QT: 426 QTc: 513 Interpretive Statements Sinus rhythm Left atrial enlargement Right bundle branch block No previous ECG available for comparison Electronically Signed On 11-16-2021 11:30:36 [employer] by Destin Hutchinson [email or web address] <ELECTRONICALLY SIGNED> By: Destin Hutchinson MD, [facility] 11/16/21 1130 [id number] 014 Destin Hutchinson MD, FACC /EPI
--- NOTE | 2021-11-16 14:35 | 2DMMODE ---
[facility] [place] [address] 2 D/M-MODE ECHOCARDIOGRAM Name: MARTINEZ GOMEZ Room #: 243-P ADM IN M.R.#: [id number] Admission: 11/16/21 Attend Phys: Sam Cruz DO Discharge: Date of : 58 Report #: [id number] THIS REPORT FOR: cc: Skylar Bradshaw MD, Karla L. MD Santiago, Patrick MD [facility] ~ APPROVED REPORT Study performed: 11/16/2021 10:06:48 EXAM: Comprehensive 2D, Doppler, and color-flow Echocardiogram Patient Location: ICU Room #: 243 Status: routine BSA: 1.96 HR: 101 bpm BP: 108/75 mmHg Rhythm: Tachycardia Other Information Study Quality: Good Indications Dyspnea S^P Cardiac arrest 2D Dimensions IVSd: 10.26 (7-11mm) LVOT Diam: 18.04 (18-24mm) LVDd: 59.91 mm PWd: 8.68 (7-11mm) Ascending Ao: 27.51 (22-36mm) LVDs: 40.18 (25-40mm) Left Atrium: 39.31 (27-40mm) Aortic Root: 25.65 mm IVC: 21.00 mm Volumes Left Atrial Volume (Systole) Single Plane 4CH: 64.54 mL Single Plane 2CH: 68.15 mL LA ESV Index: 38.00 mL/m2 Aortic Valve AoV Peak Mack.: 1.71 m/s AO Peak Gr.: 11.63 mmHg LVOT Max P.85 mmHg LVOT Max V: 0.84 m/s RODOLFO Vmax: 1.27 cm2 [facility] [address] [place] [address] 2 D/M-MODE ECHOCARDIOGRAM Name: MARTINEZ GOMEZ Room #: 243-P ADM IN M.R.#: [id number] Admission: 11/16/21 Attend Phys: Sam Cruz DO Discharge: Date of : 58 Report #: [id number] Pulmonary Valve PV Peak Mack.: 1.02 m/s PV Peak Gr.: 4.20 mmHg Tricuspid Valve TR Peak Mack.: 2.90 m/s TR Peak Gr.: 33.56 mmHg PA Pressure: 44.00 mmHg Left Ventricle The left ventricle is normal size. There is normal left ventricular wall thickness. Left ventricular ejection fraction is moderate to severely decreased. LVEF is 30%. This study is not technically sufficient to allow evaluation of the LV diastolic function. Right Ventricle The right ventricle is normal size. The right ventricular systolic function is normal. Atria Left atrium is dilated. Right atrium is dilated. Aortic Valve The aortic valve is normal in structure. The Aortic valve is sclerotic. No aortic regurgitation is present. There is no aortic valvular stenosis. Mitral Valve The mitral valve is normal in structure. Moderate mitral regurgitation. No evidence of mitral valve stenosis. Tricuspid Valve The tricuspid valve is normal in structure. There is mild tricuspid regurgitation. Estimated PAP 44 mmHg. There is moderate pulmonary hypertension. Pulmonic Valve The pulmonary valve is normal in structure. Trace pulmonic regurgitation. Great Vessels The aortic root is normal in size. IVC is dilated and collapses <50% with inspiration. Pericardium There is no pericardial effusion. [facility] [address] [place] [address] 2 D/M-MODE ECHOCARDIOGRAM Name: MAULIK GOMEZINA Room #: [facility] IN .R.#: [id number] Admission: 11/16/21 Attend Phys: Sam Cruz DO Discharge: Date of : 58 Report #: [id number] <Conclusion> Normal exercise/wall thickness Global hypokinesis more prominent at the distal septum with akinetic apex Ejection fraction 30-35% Normal right ventricle size/function Moderate biatrial enlargement Normal aortic valve structure and function Moderate mitral valve insufficiency Mild tricuspid valve insufficiency Pulmonary systolic pressure estimated 44 mmHg No pericardial effusion Normal aortic root size. <ELECTRONICALLY SIGNED> By: Destin Hutchinson MD, [facility] 11/16/211434 34 34 Destin Hutchinson MD, FACC /INF
--- NOTE | 2021-11-16 16:45 | NUR ---
Pt daughter arrived from [place]. Dr Cruz spoke with her, and other family members. Pt verbalized understanding of situation, and prognosis. Wished to continue with plan of brain flow study, however short time later pt bp cont to drop, Increase Levophed, Bp still 60/30 with weak Carotid pulse.-Hr slowing down as well. Daughter decided to withdraw care, pt within a few minutes of extubation. see [facility] summary.
== END 2021-11-16 18:28 | DRG 208 ==
LOC: ER 00:52 → EROBS 04:18 → ICU 05:00
PROVIDERS: Emergency Medicine; Internal Medicine; ADMIT Pediatrics; ATTEND Pediatrics
PROC: 5A1935Z Respiratory Ventilation, Less than 24 Consecutive Hours (ICD-10-PCS; principal; 2021-11-16)
PROC: 5A12012 Performance of Cardiac Output, Single, Manual (ICD-10-PCS; principal; 2021-11-16)
PROC: 0BH17EZ Insertion of Endotracheal Airway into Trachea, Via Natural or Artificial Opening (ICD-10-PCS; principal; 2021-11-16)
DX: J96.01 Acute respiratory failure with hypoxia (principal); J81.0 Acute pulmonary edema; G93.1 Anoxic brain damage, not elsewhere classified; E87.2 Acidosis; N17.9 Acute kidney failure, unspecified; J96.02 Acute respiratory failure with hypercapnia; I50.9 Heart failure, unspecified; J44.9 Chronic obstructive pulmonary disease, unspecified; I46.9 Cardiac arrest, cause unspecified; Z20.822 Contact with and (suspected) exposure to COVID-19; R73.9 Hyperglycemia, unspecified; I95.9 Hypotension, unspecified; Z51.5 Encounter for palliative care; Z88.0 Allergy status to penicillin; Z91.041 Radiographic dye allergy status
CPT/HCPCS: 10078